=== PATIENT | female | born 1945 | race Caucasian/White ===

== ENCOUNTER 2016-05-01 21:35 | Emergency (ER) | payer MEDICARE, OTHER ==
[~2016-05-01] VITALS: Ht 170.2 cm; Wt 72.5 kg
[~2016-05-01 21:35] MED LIST: ALPR0.5T99 PO; AMBI10TA PO; AMOX500T PO; BENI20TA25 PO; FURO8SOL PO; LEVO.075 PO; PROM1SUP12 PR; ROSU20 PO; [UNRECOGNIZED DRUG - CODE] TD
[2016-05-01 21:45] VITALS: BP 219/119; PULSE 81; RESP 18; TEMP 98.1; O2SAT 98
[2016-05-01] MEDS ORDERED: METF500T PO (21:59)
[2016-05-01] MEDS ORDERED: ZOLP10TA3 PO (21:59)
[2016-05-01] MEDS ORDERED: ALPR0.5T3 PO (21:59)
[2016-05-01] MEDS ORDERED: LEVO.075 PO (21:59)
[2016-05-01] MEDS ORDERED: OXYC1TAB36 PO (21:59)
[2016-05-01] MEDS ORDERED: ROSU10 PO (21:59)
[2016-05-01] MEDS ORDERED: VALS160T4 PO (21:59)
[2016-05-01] MEDS ORDERED: hydrALAZINE HCL 20 MG/ML VIAL IV PUSH ONE (22:00)
[2016-05-01] MEDS ORDERED: ACETAMINOPHEN 325 MG TAB PO ONE (22:00)
--- NOTE | 2016-05-01 22:05 | PD ---
HPI Chief Complaint: Headache Time Seen by Provider: 21:46 Travel History International Travel<30 days: No Contact w/Intl Traveler<30days: No Traveled to known affect area: No History of Present Illness HPI 71yo F with PMH of HTN, hypothyroidism, NIDDM presents to the ED for elevated blood pressure. Stated she check her blood pressure every night and it was systolic 180s today so she took an extra valsartan-hydrochlorothiazide 160*12.5 prior to coming. Pt also with left ear pain when she found out her blood pressure was elevated. Denies any headache, neck pain, fever, chest pain, sob, n/v, abdominal pain, focal weakness or numbness. PFSH Past Medical History Anxiety: Yes Cardiovascular Problems: Yes High Cholesterol: Yes Diabetes: Yes Thyroid Disease: Yes ?: Not Past Surgical History Hysterectomy: Yes Other Surgery: Yes (VEIN STRIPPING) Social History Alcohol Use: Yes (OCCASIONALLY) Tobacco Use: No Substance Use: No Allergies-Medications (Allergen,Severity, Reaction): Coded Allergies: No Known Allergies (Verified , 05/01/16) Reported Meds & Prescriptions Reported Meds & Active Scripts Active Reported Oxycodone-Acetaminophen 10-325 mg Tab 1 Tab PO Q4H PRN Crestor (Rosuvastatin Calcium) 10 Mg Tab 10 Mg PO DAILY Zolpidem (Zolpidem Tartrate) 10 Mg Tab 10 Mg PO HS PRN Alprazolam 0.5 Mg Tab 0.5 Mg PO Q8H PRN Metformin (Metformin HCl) 500 Mg Tab 500 Mg PO BIDPC With meals Synthroid (Levothyroxine Sodium) 75 Mcg Tab 75 Mcg PO DAILY Valsartan-Hydrochlorothiazide 160-12.5 Mg Tab 1 Tab PO DAILY Review of Systems Except as stated in HPI: all other systems reviewed are Neg Physical Exam Narrative GENERAL: 71yo F not in distress. SKIN: Warm and dry. HEAD: Atraumatic. Normocephalic. EYES: Pupils equal and round. No scleral icterus. No injection or drainage. ENT: No nasal bleeding or discharge. Mucous membranes pink and moist. TM wnl bilaterally. NECK: Trachea midline. No JVD. CARDIOVASCULAR: Regular rate and rhythm. No murmur appreciated. RESPIRATORY: No accessory muscle use. Clear to auscultation. Breath sounds equal bilaterally. GASTROINTESTINAL: Abdomen soft, non-tender, nondistended. No rebound tenderness or guarding. MUSCULOSKELETAL: No obvious deformities. No clubbing. No cyanosis. No edema. NEUROLOGICAL: Awake and alert. No obvious cranial nerve deficits. Motor grossly within normal limits. Normal speech. PSYCHIATRIC: Appropriate mood and affect; insight and judgment normal. Data Data Last Documented VS Vital Signs Date Time Temp Pulse Resp B/P Pulse Ox O2 Delivery O2 Flow Rate FiO2 05/01/16 23:03 85 18 157/66 97 Room Air 05/01/16 21:45 98.1 Orders Complete Blood Count With Diff (05/01/16 21:47) Basic Metabolic Panel (Bmp) (05/01/16 21:47) Hydralazine Inj (Apresoline Inj) (05/01/16 22:00) Acetaminophen (Tylenol) (05/01/16 22:00) Oxycodone-Acetamin 10-325 Mg (Percocet 1 (05/01/16 23:15) Labs Laboratory Tests Test 05/01/16 22:15 White Blood Count 5.8 TH/MM3 Red Blood Count 4.09 MIL/MM3 Hemoglobin 11.8 GM/DL Hematocrit 34.7 % Mean Corpuscular Volume 84.9 FL Mean Corpuscular Hemoglobin 28.9 PG Mean Corpuscular Hemoglobin 34.0 % Concent Red Cell Distribution Width 11.3 % Platelet Count 313 TH/MM3 Mean Platelet Volume 8.4 FL Neutrophils (%) (Auto) 41.2 % Lymphocytes (%) (Auto) 45.9 % Monocytes (%) (Auto) 9.9 % Eosinophils (%) (Auto) 2.4 % Basophils (%) (Auto) 0.6 % Neutrophils # (Auto) 2.4 TH/MM3 Lymphocytes # (Auto) 2.7 TH/MM3 Monocytes # (Auto) 0.6 TH/MM3 Eosinophils # (Auto) 0.1 TH/MM3 Basophils # (Auto) 0.0 TH/MM3 CBC Comment DIFF FINAL Differential Comment Sodium Level 137 MEQ/L Potassium Level 3.9 MEQ/L Chloride Level 99 MEQ/L Carbon Dioxide Level 30.3 MEQ/L Anion Gap 8 MEQ/L Blood Urea Nitrogen 12 MG/DL Creatinine 0.73 MG/DL Estimat Glomerular Filtration 79 ML/MIN Rate Random Glucose 119 MG/DL Calcium Level 9.1 MG/DL [facility] Medical Decision Making Medical Screen Exam Complete: Yes Emergency Medical Condition: Yes Differential Diagnosis Hypertensive emergency vs. uncontrolled HTN Narrative Course 71yo F with elevated blood pressure here for evaluation. Pt also with left ear pain but left ear exam is normal. Labs reviewed, no leukocytosis. Creatinine normal. No red flags. Normal neuroexam. Pt's blood pressure was initially 219 /119 and was given hydralazine 10mg IV. Pt's blood pressure improved to 157/ 66. Pt given acetaminophen for ear pain. She then wanted to take her percocet 10 that she takes every 4 hours for chronic back pain so I gave her a dose of percocet 10 here. Pain improved after medication. Return precautions given. Diagnosis Primary Impression: Elevated blood pressure reading Patient Instructions: General Instructions Departure Forms: Tests/Procedures Additional Instructions: Please follow up with your PMD tomorrow in 1-2 days. Return to the ED immediately if symptoms worsen. Med/Other Pt SpecificInfo: No Change to Meds Disposition: 01 DISCHARGE HOME Condition: Stable Naida Lyles DO May 01, 2016 22:04
[2016-05-01 22:39] LABS: AUTOMATED NEUTROPHIL # 2.4 TH/MM3 (1.8-7.7); BASOPHIL % 0.6 % (0.0-2.0); EOSINOPHIL # 0.1 TH/MM3 (0-0.4); EOSINOPHIL % 2.4 % (0.0-4.0); HEMATOCRIT 34.7 % (35.0-46.0); HEMO FLAGS DIFF FINAL; LYMPH % 45.9 % (9.0-44.0); LYMPHOCYTE # 2.7 TH/MM3 (1.0-4.8); MEAN CELL VOLUME 84.9 FL (80.0-100.0); MEAN CORPUSCULAR HEMOGLOBIN 28.9 PG (27.0-34.0); MONO % 9.9 % (0.0-8.0); NEUT % 41.2 % (16.0-70.0); PLATELET COUNT 313 TH/MM3 (150-450); RED BLOOD COUNT 4.09 MIL/MM3 (4.00-5.30); RED CELL DISTRIBUTION WIDTH 11.3 % (11.6-17.2); WHITE BLOOD COUNT 5.8 TH/MM3 (4.0-11.0)
[2016-05-01 22:47] LABS: POTASSIUM 3.9 MEQ/L (3.5-5.1)
[2016-05-01 22:50] LABS: BICARBONATE 30.3 MEQ/L (21.0-32.0)
[2016-05-01 23:03] VITALS: BP 157/66; PULSE 85; RESP 18; O2SAT 97
[2016-05-01] MEDS ORDERED: oxyCODONE/ACETAMINOPHEN 10 MG/325 MG TAB PO ONE (23:15)
== END 2016-05-01 23:42 | disposition home or self-care (01) ==
LOC: PHED 21:35
DX: I10 Essential (primary) hypertension (principal); E03.9 Hypothyroidism, unspecified; E11.9 Type 2 diabetes mellitus without complications; H92.02 Otalgia, left ear; Z79.84 Long term (current) use of oral hypoglycemic drugs; Z79.899 Other long term (current) drug therapy
CPT/HCPCS: 80048; 85025; 96374; 99283; J0360

== ENCOUNTER → 2017-02-06 | Day surgery (SDC) | payer MEDICARE, OTHER ==
[~2017-02-06] MED LIST changes: +ALPR0.5T3 PO; -ALPR0.5T99 PO; -AMBI10TA PO; -AMOX500T PO; -BENI20TA25 PO; +BUPIVACAINE HCL PF 0.25% 30 ML VIAL ONE; -FURO8SOL PO; +KETOROLAC TROMETHAMINE 30 MG/ML (IVP) VIAL IV PUSH ONE; +LACTATED RINGER'S 1000 ML INJ 1,000 ML ONE; +METF500T PO; +MIDAZOLAM HCL 2 MG/2 ML VIAL ONE; +ONDANSETRON HCL 4 MG/2 ML VIAL IV PUSH ONE; +OXYC1TAB36 PO; -PROM1SUP12 PR; +PROPOFOL 200 MG/20 ML AMP IV ONE; +ROSU10 PO; -ROSU20 PO; +TRIAMCINOLONE ACETONIDE 40 MG/ML VIAL ONE; +VALS160T4 PO; +ZOLP10TA3 PO; -[UNRECOGNIZED DRUG - CODE] TD; +ceFAZolin 2 GM PREMIX 50 ML ONE
--- NOTE | 2017-02-06 10:01 | MP ---
cc: PENELOPE VIDAL DPM DATE OF SURGERY: 02/06/2017 PREOPERATIVE DIAGNOSIS Right second digit hammertoe, metatarsalgia with second interspace neuroma. POSTOPERATIVE DIAGNOSIS Right second digit hammertoe, metatarsalgia with second interspace neuroma. PROCEDURES PERFORMED 1. Neurectomy, second interspace right foot. 2. PIPJ fusion, hammertoe correction second digit right foot. 3. Second metatarsal osteotomy, right foot. SPECIMEN None. ESTIMATED BLOOD LOSS Less than 30 mL. MATERIALS Times one 0.54 K-wire and times one 2.0 14-mm screw. INJECTABLES 20 ccs of 0.25% Marcaine plain. ANESTHESIA General anesthesia. TOURNIQUET 68 minutes at a setting of 215 mmHg. ESTIMATED BLOOD LOSS Less than 30 mL. COMPLICATIONS None. PLAN OF ACTIVITY PACU then discharge home once stable per same-day surgery criteria. JUSTIFICATION FOR PROCEDURE A pleasant 72-year-old female with worsening foot pain. X-ray shows significant contracture and clinical signs of a neuroma. We devised a plan to move forward with the previously stated procedure. No guarantees given or implied regarding the outcome. The patient understood that she will have permanent numbness in the level of the second interspace, a small chance of amputation neuroma needing plantar approach surgery at a later date, stiffness of the second digit is to be expected with possible chronic swelling. PROCEDURE IN DETAIL Under mild sedation the patient is brought to the operating room, placed on the operative table in the supine position. Following the induction of general anesthesia, local anesthesia was obtained about the forefoot utilizing standard block fashion. The patient's right foot was then scrubbed, prepped and draped in the usual aseptic fashion. The foot was elevated, exsanguinated and the previously placed mid calf tourniquet was inflated to 215 mmHg. An incision was made over the dorsal aspect of the PIPJ which was slight curvilinear into the second interspace. Sharp and blunt dissection was carried down carefully through adipose tissue, superficial venous structures that were encountered were Bovie ligated as deemed necessary. Dorsal neurovascular bundle was maintained intact. Sharp and blunt dissection was carried down to the level of the intermetatarsal ligament of the second and third metatarsal. A linear incision was performed. There is noted to be inflamed clinically neuroma at the level of the second and third metatarsal heads. Sharp and blunt dissection was carried down to the stalk of the nerve of the second interspace in its bifurcation into the plantar aspect of the second and third digit. Utilizing vessel loops this was identified. The proximal aspect of the nerve was retracted as far distal as possible. It was injected with 0.5 ccs of Kenalog 40 and then severed sharply allowing for retraction of the nerve stump into the interossei musculature. It was then sharply dissected at the bifurcation, passed off the field for pathological analysis. The wound was flushed with copious amounts of normal saline. Next, an incision was made over the dorsal aspect of the extensor digitorum longus tendon. The sling wing apparatus was transected. The Z tendon lengthening approach took place. Sharp and blunt dissection was carried down to the level of the second MPJ. A linear capsulotomy was performed. Medial and lateral contractures were then severed, a offset osteotomy was performed dorsal distal to plantar proximal. The second metatarsal head was transposed proximally 2 mm and fixated utilizing x1 screw utilizing proper AO technique. This was a Solaria cannulated screw. The prominent dorsal redundant shelf was transected. The plantar plate was visualized at this point, there was no signs of instability or tear. Next, power instrumentation was used to remove the articular surface of the head of the proximal phalanx and the base of the middle phalanx at the cartilaginous surface. A wire was then placed through the middle phalanx of the distal phalanx, retrograded back across the proximal phalanx joint, securing the fusion site, stopping just short of the second MPJ. Fluoroscopy was used to visualize the hardware placement, it was excellent. There was anatomic alignment. There is correction of the hammertoe. The wound was flushed again with copious amounts of normal saline. Extensor tendon was then repaired under loose physiologic tension utilizing Vicryl. Deep dermis was closed utilizing Monocryl. Skin was closed utilizing nylon. Upon relieving the tourniquet there is a prompt hyperemic response to all digits with no delayed capillary fill time to the second digit. A bulky bandage was placed. The patient was positioned within a controlled ankle motion boot. The patient recovered nicely in the postoperative suite. The patient is heel weight-bear to tolerance. She will ice, elevate. I will see the patient within 3-5 days. ELIZABETH Leiva /8:51 AM /9:28 AM
== END | disposition home or self-care (01) ==
LOC: ESDC 06:27
PROVIDERS: ATTEND Podiatrist Foot & Ankle Surgery
DX: M20.41 Other hammer toe(s) (acquired), right foot (principal); G57.81 Other specified mononeuropathies of right lower limb
CPT/HCPCS: 01470; 01480; 28080; 28285; 28308; 73620; 76000; 88304; C1713; J0690; J1885; J2250; J2405; J3010; J3301; J7120